=== PATIENT | female | born 1975 | race American Indian/Alaskan Native ===

== ENCOUNTER 2021-02-25 18:21 | Emergency (ER) | payer SELFPAY ==
[2021-02-25] MEDS ORDERED: HYDROcodone/ACETAMINOPHEN 5-325 MG TAB PO STA (21:29)
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
[2021-02-26 02:59] VITALS: BP 138/83
== END 2021-02-26 02:00 | disposition home or self-care (01) ==
LOC: ED 18:21
DX: S50.12XA Contusion of left forearm, initial encounter (principal); W17.89XA Other fall from one level to another, initial encounter; Y93.89 Activity, other specified; Y92.89 Other specified places as the place of occurrence of the external cause; Y99.8 Other external cause status
CPT/HCPCS: 99283

== ENCOUNTER 2021-10-30 17:19 | Emergency (ER) | payer OTHER, MEDICAID ==
[2021-10-30] MEDS ORDERED: HYDROcodone/ACETAMINOPHEN 5-325 MG TAB PO STA (22:52)
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
[2021-10-31 00:29] VITALS: BP 131/87
== END 2021-10-31 00:29 | disposition home or self-care (01) ==
LOC: ED 17:19
DX: S39.012A Strain of muscle, fascia and tendon of lower back, initial encounter (principal); V89.2XXA Person injured in unspecified motor-vehicle accident, traffic, initial encounter; Y93.89 Activity, other specified; Y92.89 Other specified places as the place of occurrence of the external cause; Y99.8 Other external cause status
CPT/HCPCS: 72100; 99283